=== PATIENT | female | born 1960 | race Caucasian/White ===

== ENCOUNTER 2019-05-05 21:23 | Inpatient (IN) ==
[2019-05-05] MEDS ORDERED: NS 1,000 ML IV ONE ×2 (21:51→23:59)
--- NOTE | 2019-05-05 22:01 | PROVIDER DOCUMENTATION ---
HPI-Syncope/Dizziness - General Chief Complaint: Dizziness Stated Complaint: SYNCOPE, HEAD INJURY Time Seen by Provider: 05/05/19 21:50 Source: patient Allergies/Adverse Reactions: Patient Allergies Allergy/AdvReac Type Severity Reaction Status Date / Time No Known Allergies Allergy Verified 05/05/19 22:00 Home Medications: Home Medication List Medication Instructions Recorded Confirmed Last Taken Type NK [No Home Medications] 05/05/19 05/05/19 Unknown History - History of Present Illness-Syncope/Dizzy Nature of Presenting Problem: 58 YOF PRESENTS WITH C/O GENERALIZED WEAKNESS, DIZZINESS AND "PASSING OUT X 1". SHE REPORTS SHE HAS BEEN FISHING ALL DAY IN THE HE[place], LAST MEAL WAS AT 2PM AND LAST PO FLUIDS AT 2PM. SHE REPORTS SHE BECAME DIZZY SAT DOWN ON A STUMP AND PASSED OUT CAUSING HER TO HIT HER HEAD. SHE WOKE UP LESS THAN A MINUTE LATER AND WAS ALERT AND ORIENTED X 3. SHE DENIES PAIN, CP, FEVER, CHILLS, SOB, N/V/D. SHE DOES CONFIRM RECENT DYSURIA AND FLANK PAIN FOR WHICH SHE TOOK AZO Prior Episodes: reports: single episode today Onset/Duration: reports: just prior to arrival (2014) Timing: reports: gone now Position/Activity at time of episode: reports: sitting Symptoms prior to episode: reports: lightheaded Duration of preceding symptoms? (mins): 5 (MIN) Context: reports: lost consciousness. denies: confused after event, incontinent of urine, incontinent of stool, breathing shallow Loss of Consciousness: brief (seconds) Location of injury. (If syncope resulted in an injury.): reports: head (OCCIPI SAMMIE AREA HIT GRAVEL, WHEN PASSED OUT WAS SITTING ON TREE STUMP) Current Symptoms: reports: none/feels normal Recently Seen Here or By Another Healthcare Provider: No - Dizziness Severity in ED: denies: mild Dizziness Related Current/Associated Symptoms: reports: none/feels normal Modifying Factors: improves with: changing position Patient usually:: reports: walks without assistance Review of Systems - Adult - REVIEW OF SYSTEMS - ADULT Constitutional: reports: no symptoms reported. denies: see HPI, chills, fever, fatique, night sweats, weight gain, weight loss, other Eyes: reports: no symptoms reported. denies: see HPI, discharge, dry eyes, decreased vision, blurred vision, double vision, eye pain, redness, other Ears, Nose, Mouth & Throat: reports: no symptoms reported. denies: see HPI, ear discharge, ear pain, hearing loss, tinnitus, epistaxis, sinus problem, nose pain, loose teeth, mouth/dental pain, mouth swelling, hoarseness, throat pain, throat swelling, other Cardiovascular: reports: no symptoms reported. denies: see HPI, chest pain, edema, heart murmur, irregular heart rate, orthopnea, palpitations, poor circulation, PND, syncope, other Respiratory: reports: no symptoms reported. denies: see HPI, chronic cough, cough, dyspnea on exertion, excessive sputum production, hemoptysis, pleurisy, shortness of breath, wheezing, other Gastrointestinal: reports: no symptoms reported. denies: see HPI, abdominal pain, hematemesis, constipation, diarrhea, difficulty swallowing, frequent heartburn, nausea, poor appetite, rectal bleeding, vomiting, other Genitourinary: reports: dysuria, flank pain. denies: no symptoms reported, see HPI, discharge, frequency, frequent UTI's, hematuria, hesitency, incontinence, urinary retention, urgency, other Musculoskeletal: reports: muscle weakness (GENERALIZED WEAKNESS, NO FOCAL NEURO DEFICITS). denies: no symptoms reported, see HPI, bone pain, back pain, frequent leg cramps, joint pain, joint swelling, muscle aches, neck pain, other Integumentary: reports: no symptoms reported. denies: see HPI, hives, hair loss, itching, mole changes, nail changes, rash, skin sores/ulcer, skin thickening, other Neurological: reports: dizziness/vertigo. denies: no symptoms reported, see HPI, ataxia, headache/migraines, loss of balance, numbness, paresthesia, seizure, slurred speech, syncope, tremors, other Psychiatric: reports: no symptoms reported. denies: see HPI, anxiety, anti- depressant use, alcohol/drug dependence, depression, emotional problems, insomnia, panic attacks, suicidal thoughts, other Endocrine: reports: no symptoms reported. denies: see HPI, change in skin pigment, excessive sweating, goiter, cold intolerance, heat intolerance, increased hunger, increased thirst, polyuria, other Hematologic/Lymphatic: reports: no symptoms reported. denies: see HPI, blood clots, easy bruising, low blood count, lymphedema, prolonged bleeding, swollen lymph nodes, transfusions, other Allergic/Immunologic: reports: no symptoms reported. denies: see HPI, allergic reactions, allergic rhinitis, asthma, eczema, food allergy, frequent infections, hay fever, hives, positive PPD, urticaria, other Past History - Adult - PAST MEDICAL HISTORY-ADULT Review of Records: reports: Nursing Assessment Review, Social history reviewed & non-contributory. Physical Exam-General - PHYSICAL EXAM-ADULT Initial Vital Signs Reviewed: Yes - CONSTITUTIONAL General Appearance: appears well, alert, no apparent distress - EYES Eyes: PERRL/EOMI - HEAD, EARS, NOSE, MOUTH & THROAT HENMT: normocephalic/atraumatic, moist mucous membranes, normal ENT inspection - NECK Neck: non-tender, full range of motion, supple - RESPIRATORY Respiratory: chest non-tender, lungs clear, normal breath sounds, no pleuratic chest pain - CARDIOVASCULAR Cardiovascular: normal peripheral pulses, regular rate, rhythm - GASTROINTESTINAL (ABDOMEN) Abdominal Exam: normal bowel sounds, non tender, soft - LYMPHATIC Lymphatic: no adenopathy - MUSCULOSKELETAL Back Exam: normal inspection, no CVA tenderness, no vertebral tenderness Extremity: normal range of motion, non-tender, normal gait, normal inspection - SKIN Integumentary: normal color, normal turgor, warm/dry - NEUROLOGIC Neurologic: grossly normal - PSYCHIATRIC Psych/Mental Status: normal mood/affect, oriented x 3 Progress - PLAN OF CARE/RESULTS Progress/Plan/Lab Results: Vital Signs - 8 hr 05/05/19 21:27 05/05/19 22:26 05/05/19 22:33 Temperature 98 F Pulse Rate 92 H 83 Pulse Rate [Sitting] 79 Pulse Rate [Standing] 88 Pulse Rate [Supine] 80 Respiratory Rate 18 15 Blood Pressure 124/77 187/84 Blood Pressure [Sitting] 178/99 Blood Pressure [Standing] 176/80 Blood Pressure [Supine] 182/92 O2 Sat by Pulse Oximetry 97 96 05/05/19 23:24 05/05/19 23:37 05/05/19 23:46 Temperature 97.9 F Pulse Rate 86 97 H Pulse Rate [Sitting] Pulse Rate [Standing] Pulse Rate [Supine] Respiratory Rate 22 17 Blood Pressure 189/90 165/114 189/89 Blood Pressure [Sitting] Blood Pressure [Standing] Blood Pressure [Supine] O2 Sat by Pulse Oximetry 97 96 05/06/19 00:04 Temperature Pulse Rate 87 Pulse Rate [Sitting] Pulse Rate [Standing] Pulse Rate [Supine] Respiratory Rate 20 Blood Pressure 161/88 Blood Pressure [Sitting] Blood Pressure [Standing] Blood Pressure [Supine] O2 Sat by Pulse Oximetry 95 Laboratory Results - last 24 hr 05/05/19 05/05/19 05/05/19 21:55 21:55 21:55 WBC 15.40 H RBC 5.04 Hgb 14.6 Hct 41.9 MCV 83.1 MCH 29.0 MCHC 34.8 RDW Std Deviation 13.0 Plt Count 243 MPV 11.4 H Immature Gran % (Auto) 0.3 Neut % (Auto) 80.6 H Lymph % (Auto) 8.9 L [place] % (Auto) 8.5 Eos % (Auto) 1.4 Baso % (Auto) 0.3 Immature Gran # (Auto) 0.05 H Neut # (Auto) 12.41 H Lymph # (Auto) 1.37 [place] # (Auto) 1.31 H Eos # (Auto) 0.22 Baso # (Auto) 0.04 PT INR PTT (Actin FS) Sodium 135 L Potassium 4.1 Chloride 97 L Carbon Dioxide 24 L Anion Gap 14 BUN 16 Creatinine 0.8 Estimated GFR/1.73 m2 > 60 BUN/Creatinine Ratio 20 Glucose 418 H* POC Glucose Calculated Osmolality 289 Calcium 9.2 Creatine Kinase 83 Troponin T < 0.010 Urine Source Urine Color Urine Clarity Urine pH Ur Specific [place] Urine Protein Urine Ketones Urine Blood Urine Nitrite Urine Bilirubin Urine Urobilinogen Urine Microscopic RBC Urine WBC Urine Microscopic WBC Ur Epithelial Cells Urine Bacteria Urine Glucose 05/05/19 05/05/19 05/05/19 21:55 22:18 22:36 WBC RBC Hgb Hct MCV MCH MCHC RDW Std Deviation Plt Count MPV Immature Gran % (Auto) Neut % (Auto) Lymph % (Auto) [place] % (Auto) Eos % (Auto) Baso % (Auto) Immature Gran # (Auto) Neut # (Auto) Lymph # (Auto) [place] # (Auto) Eos # (Auto) Baso # (Auto) PT 14.1 INR 1.04 PTT (Actin FS) 28.3 Sodium Potassium Chloride Carbon Dioxide Anion Gap BUN Creatinine Estimated GFR/1.73 m2 BUN/Creatinine Ratio Glucose POC Glucose 386 H Calculated Osmolality Calcium Creatine Kinase Troponin T Urine Source CLEAN CATCH Urine Color YELLOW Urine Clarity CLEAR Urine pH 5.0 Ur Specific [place] 1.015 Urine Protein 1+(30 mg/dL) A Urine Ketones TRACE Urine Blood NEGATIVE Urine Nitrite NEGATIVE Urine Bilirubin NEGATIVE Urine Urobilinogen NORMAL Urine Microscopic RBC <10 Urine WBC TRACE A Urine Microscopic WBC <10 Ur Epithelial Cells <10 Urine Bacteria 3+ Urine Glucose 3+(500 mg/dL) A Orders Category Date Time Status Admit - [facility] Routine AdmDCTranf 05/05/19 23:59 Active Activity - Up Ad Monica ORDERED Care 05/05/19 23:59 Active FSBS [Finger Stick Blood Sugar (ED)] DIRECTED Care 05/05/19 21:58 Active Neurological Check Q4H Care 05/06/19 00:00 Active Orthostatic Vital Signs NOW Care 05/05/19 22:02 Active Saline Loc DIRECTED Care 05/05/19 23:59 Active Saline Loc NOW Care 05/05/19 21:50 Active Vital Signs Order ROUTINE Care 05/05/19 23:59 Active Z-Document. for Tele Applied ORDERED Care 05/06/19 00:00 Active Diabetic Diet Diet 05/06/19 00:[address] HEAD/C-SPINE W/O CONTRAST [CT] Stat Exams 05/05/19 21:50 Completed BASIC METABOLIC PANEL [CHEM] Stat Lab 05/05/19 21:55 Completed CBC WITH ELECTRONIC DIFF [HEME] Stat Lab 05/05/19 21:55 Completed CK PROFILE [SP CHEM] Stat Lab 05/05/19 21:55 Completed PT [PROTIME WITH INR] [COAG] Stat Lab 05/05/19 21:55 Completed PTT [COAG] Stat Lab 05/05/19 21:55 Completed TROPONIN T Stat Lab 05/05/19 21:55 Completed UA NIMS W/REFLEX CULT PL [URINALYSIS] Stat Lab 05/05/19 22:36 Completed 0.9% Sodium Chloride Inj [Ns] 1,000 ml Med 05/05/19 23:59 Active IV 75 mls/hr 0.9% Sodium Chloride Inj [Ns] 1,000 ml Med 05/05/19 21:51 Discontinued IV 999 mls/hr CefTRIAXONE [Rocephin] 1 gm Med 05/05/19 23:05 Discontinued 0.9% Sodium Chloride Inj [Ns] 50 ml IV NOW Insulin Human Regular ([place] [Humulin R ([place])] Med 05/05/19 23:06 Discontinued See Protocol SUBQ NOW ONE Telemetry [OM.EQ] Routine Oth 05/05/19 23:59 Active EKG [EKG] Stat Ther 05/05/19 21:51 Draft Transfer/Admit Order [TRANSFER] Routine Transfer 05/06/19 00:01 Ordered D/W MD: WE HAVE [address] READ[address] ONE PER DR TOBIN SHOWING NO ACUTE ABNORMALITY AND ONE FROM DR YOUNGER SHOWING ARTIFACT V TINY SUBARACHNOID HEMORRHAGES. DR MENDOZA MADE CALL TO TRANSFER CENTER AND IMAGES WERE PUSHED FOR REVIEW. FAMILY IS IN AGREEMENT AND REPORT THE PATIENT IS A DIET CONTROLLED DIABETIC ADN ARE ALSO IN AGREEMENT WITH [facility] 2320: SPOKE WITH HEIDI AT [facility] WHO REPORTS DR HELMS REVIEWED FILMS AND REPORTS NO ACUTE ABNORMALITY BUT DOES RECOMMENDS OBS INPATIENT Result Diagrams: 05/05/19 21:55 05/05/19 21:55 Departure - Departure Date of Disposition Decision: 05/06/19 Time of Disposition Decision: 00:01 DIAGNOSIS: Syncope, Hyperglycemia, UTI (urinary tract infection) Disposition: HOME 01 Certified Medical Emergency: Emergent Condition: Stable Referrals and Follow-Ups: None,PCP [Primary Care Provider] - - Critical Care Note This patient required my direct & personal management of CC.: No Attestation - Physician/ BUNNY Attestation Patient care was provided by Advanced Practice Provider:: Yes Advanced Practice Provider:: Carolyn Humphries Advanced Practice Provider documentation review:: The Mid-level provider documentation, treatment plan and medical decision making was reviewed by the physician who agrees with all treatment and medical decision making by the P. The physician spent face to face time with patient:: No Advanced Practice Provider documentation review:: Supervising physician onsite and consulted in the evaluation and care of this patient. The physician did not have a face to face encounter with the patient.
--- NOTE | 2019-05-05 22:20 | Diag Imaging Result Doc PS360 ---
CT HEAD/C-SPINE W/O CONTRAST - 05/05/2019 INDICATION: fall COMPARISON: None FINDINGS: Head CT: There are faint nonspecific subarachnoid hyperdensities at the anterior cerebral hemispheres bilaterally. The appearance is indeterminate, this could represent subtle hemorrhage or just artifact. The ventricles and sulci are normal in size and contour. No mass effect or midline shift. The skull is intact. The sinuses are clear. Cervical spine: Alignment is anatomic. Vertebral body heights are preserved. There is moderately advanced multilevel disc degeneration. This is worst at C5-6-6 and C6-C7. There are also prominent disc bulges at C2-3 and C3-4. No fracture or subluxation. IMPRESSION: 1. Probably artifact, but cannot exclude tiny subarachnoid hemorrhages at the anterior cerebral hemispheres. 2. Cervical spondylosis. No acute injury. This exam was performed using automated exposure control, adjustment of mA or kV according to patient size, and/or use of iterative reconstruction technique Electronically signed by Chaitanya Méndez 05/05/2019 10:18 PM
[2019-05-05 22:21] LABS: BASO# 0.04 X1000 (0.0-0.2); BASO% 0.3 % (0.0-0.8); EOS# 0.22 X1000 (0.0-0.7); EOS% 1.4 % (0.0-10.0); HEMATOCRIT 41.9 % (37.0-47.0); HEMOGLOBIN 14.6 g/dL (12.0-16.0); IMM GRAN# 0.05 X1000 (0.0-0.04); IMM GRAN% 0.3 % (0.0-0.5); LYMPH# 1.37 X1000 (1.2-3.4); LYMPH% 8.9 % (20.5-51.1); MCHC 34.8 g/dL (33-37); MCV 83.1 FL (81-99); MONO# 1.31 X1000 (0.11-0.59); MONO% 8.5 % (1.7-9.3); MPV 11.4 FL (7.4-10.4); NEUT# 12.41 X1000 (1.4-6.5); NEUT% 80.6 % (42.2-75.2); PLT 243 X1000 (130-400); RBC 5.04 XMIL (4.2-5.4)
[2019-05-05 22:30] LABS: INR 1.04; PROTIME 14.1 Seconds (11.0-16.0); PTT 28.3 Seconds (22.3-41.8)
[2019-05-05 22:42] LABS: ESTIMATED GFR > 60
[2019-05-05 22:45] LABS: AGAP 14; CHLORIDE 97 mmol/L (98-107); POTASSIUM 4.1 mmol/L (3.5-5.1); SODIUM 135 mmol/L (136-145); TCO2 24 mmol/L (25-35)
[2019-05-05 22:46] LABS: BUN 16 mg/dL (8-22); CALCIUM 9.2 mg/dL (8.8-10.2); CK PROFILE 83 U/L (24-173); COSMO 289; CREATININE 0.8 mg/dL (0.5-0.9)
[2019-05-05 22:51] LABS: BILIRUBIN URINE NEGATIVE (NEGATIVE); BLOOD URINE NEGATIVE (NEGATIVE); CLARITY CLEAR (CLEAR); COLOR YELLOW; KETONE URINE TRACE mg/dL (NEGATIVE); LEUKOCYTES URINE TRACE (NEGATIVE); NITRITE URINE NEGATIVE (NEGATIVE); PROTEIN URINE 1+(30 mg/dL) mg/dL (NEGATIVE); SP GRAVITY URINE 1.015; URINE BACTERIA 3+ /HFP; URINE EPITHELIAL CELLS <10 /HPF (<10); URINE RBC <10 /HPF (<10); URINE SOURCE CLEAN CATCH; URINE WBC <10 /HPF (<10); UROBILINOGEN URINE NORMAL
[2019-05-05 22:52] LABS: GLUCOSE 418 mg/dL (70-104)
[2019-05-05] MEDS ORDERED: ROCEPHIN 1 GM in NS 50 ML IV ONE (23:05)
[2019-05-05] MEDS ORDERED: HUMULIN R (PARKWAY) SUBQ ONE (23:06)
--- NOTE | 2019-05-05 23:15 | ED EKG INTERP ---
This chart was entered by Adrienne Cool Scribe, acting as scribe for Phil Low MD. EKG Interpretation - EKG Time of EKG reading by physician:: 22:25 EKG Read and Signed by:: Phil Low EKG Interpretation (*Must complete 3 of following elements*): Abnormal (possible left atrial enlargement) Rate: 79 Rhythm: nsr [place]: normal QRS: normal FL Interval: normal ST Wave: normal Attestation - Physician/ BUNNY Attestation Patient care was provided by Advanced Practice Provider:: Yes Advanced Practice Provider documentation review:: The Mid-level provider documentation, treatment plan and medical decision making was reviewed by the physician who agrees with all treatment and medical decision making by the MLP. The physician spent face to face time with patient:: Yes Advanced Practice Provider documentation review:: Supervising physician onsite and consulted in the evaluation and care of this patient. The physician did have a face to face encounter with the patient. This chart was documented by the indicated scribe, (Adrienne Cool Scribe) and accurately reflects the services I performed and decisions made by me, Phil Low MD, as attested by the provider's signature.
--- NOTE | 2019-05-06 00:21 | EKG Report ---
Test Performed on : 05/05/2019 10:24:30 PM Test Reason : CP Blood Pressure : / mmHG Vent. Rate : 079 BPM Atrial Rate : 079 BPM P-R Int : 134 ms QRS Dur : 084 ms QT Int : 406 ms P-R-T Axes : 043 035 030 degrees QTc Int : 465 ms Normal sinus rhythm. Possible Left atrial enlargement Borderline ECG No previous ECGs available Unconfirmed Result
[2019-05-06] MEDS ORDERED: HUMULIN R (PARKWAY) SUBQ ONE (01:46)
[2019-05-06] MEDS ORDERED: ZOFRAN IV PRN (09:04)
[2019-05-06] MEDS ORDERED: TYLENOL PO PRN (09:04)
--- NOTE | 2019-05-06 09:29 | EKG Report ---
Test Performed on : 05/06/2019 08:08:24 AM Test Reason : pause on telemetry Blood Pressure : / mmHG Vent. Rate : 080 BPM Atrial Rate : 080 BPM P-R Int : 136 ms QRS Dur : 084 ms QT Int : 410 ms P-R-T Axes : 045 035 039 degrees QTc Int : 472 ms Normal sinus rhythm. Normal ECG When compared with ECG of 05-MAY-2019 22:24, (Unconfirmed) No significant change was found Unconfirmed Result
[2019-05-06] MEDS ORDERED: GLUCOTROL PO SCH (10:15)
[2019-05-06] MEDS ORDERED: ROCEPHIN 1 GM in NS 50 ML IV SCH ×2 (10:30→22:00)
[2019-05-06 10:37] LABS: BASO# 0.01 X1000 (0.0-0.2); BASO% 0.1 % (0.0-0.8); HEMATOCRIT 37.8 % (37.0-47.0); HEMOGLOBIN 13.2 g/dL (12.0-16.0); IMM GRAN# 0.02 X1000 (0.0-0.04); IMM GRAN% 0.2 % (0.0-0.5); LYMPH# 0.73 X1000 (1.2-3.4); LYMPH% 7.3 % (20.5-51.1); MCH 29.1 PG (27-31); MCHC 34.9 g/dL (33-37); MCV 83.4 FL (81-99); MONO# 0.66 X1000 (0.11-0.59); MONO% 6.6 % (1.7-9.3); MPV 11.2 FL (7.4-10.4); NEUT# 8.51 X1000 (1.4-6.5); NEUT% 84.8 % (42.2-75.2); PLT 232 X1000 (130-400); RBC 4.53 XMIL (4.2-5.4); WBC 10.03 X1000 (4.8-10.8)
[2019-05-06 10:40] LABS: AGAP 9; BUN 14 mg/dL (8-22); CALCIUM 8.2 mg/dL (8.8-10.2); CHLORIDE 101 mmol/L (98-107); COSMO 286; CREATININE 0.7 mg/dL (0.5-0.9); ESTIMATED GFR > 60; GLUCOSE 336 mg/dL (70-104); MAGNESIUM 1.6 mg/dL (1.5-2.7); POTASSIUM 4.5 mmol/L (3.5-5.1); SODIUM 136 mmol/L (136-145); TCO2 26 mmol/L (25-35)
--- NOTE | 2019-05-06 10:59 | Diag Imaging Result Doc PS360 ---
EXAM: CT ANGIOGRAM HEAD HISTORY: r/o sah TECHNIQUE: CT angiogram head with contrast. MIP images obtained. COMPARISON: CT head from 05/05/2019 FINDINGS: Mild atherosclerosis distally in each internal carotid artery just proximal to the anterior and middle cerebral arteries. Normal flow in the anterior and middle cerebral arteries. Dominant A1 segment on the right. Normal flow within each distal vertebral artery. Normal basilar artery. This supplies the right posterior cerebral artery. A posterior communicating artery on the left supplies the left posterior communicating artery. This is a normal variant. No aneurysm. IMPRESSION: No abnormality identified. This exam was performed using automated exposure control, adjustment of mA or kV according to patient size, and/or use of iterative reconstruction technique. Electronically signed by Mike Adame 05/06/2019 10:57 AM
--- NOTE | 2019-05-06 15:10 | HISTORY AND PHYSICAL ---
ADDENDUM TO HISTORY AND PHYSICAL Add under Assessment and Plan Urinary tract infections with symptoms. She is currently on Rocephin for treatment. Dictated by DESMOND Her for Buster Kat MD cc: DESMOND Her MD
--- NOTE | 2019-05-06 15:52 | HISTORY AND PHYSICAL ---
ADDENDUM Patient came in after a syncopal episode. Apparently she was out fishing and then she just passed out. She did have some preceding dizziness. She had been fishing all day in the heat not drinking very much. She did fall over and hit her head. She woke up about a minute later possibly less than that. She does have some dysuria and another thing she was hyperglycemic when she came in, she is a diabetic but we are not sure what her medications are. I think she is diet controlled actually as far as the diabetes is concerned. She does have a family history of heart attack or CAD her mother had issues when she was in her 50s. She in her 60s due to CAD. Patient herself does not have any other issues there. Her exam is really nonfocal. Her EKG was unremarkable. Her head CT showed some trace subarachnoid hemorrhage possibly but felt to be probably artifact. This was reviewed by neurosurgery in [place] and they felt that this was not an active issue. She has a nonfocal neurologic exam. No headache or anything of the sort. In any case patient was evaluated and placed in observation. This morning she had up to 4 second pause and she was extremely symptomatic during that time, it was recorded, again EKG did not show anything significant and she is asymptomatic at this time. I am concerned she has a primary arrhythmia such as a significant conduction abnormality and will likely need a pacemaker. We will get an echocardiogram and cardiology consult, repeat her enzymes, her EKG is nonspecific. There is a questionable Q waves in her anterior inferior leads laterally so we will continue to monitor. Will get a CT angiogram MRI just to make sure there is nothing going on neurologically since she had questionable artifacts but I think that is unlikely. We will work on diabetic control. I do think she probably needs additional medications cause her blood sugars are not under control. I think metformin will be in order but we are going to get contrasted CT so will have to hold on that but I will start some glipizide and see how she does. Continue to monitor closely. We will get cardiology evaluation obviously and follow closely, get an A1c. Further orders per the nurse practitioner evaluation, will continue to monitor. cc: Buster Kat MD [facility]
--- NOTE | 2019-05-06 15:55 | HISTORY AND PHYSICAL ---
PRIMARY CARE PROVIDER: DESMOND Parra and Dr. Chaitanya Mayer. CHIEF COMPLAINT: Passed out. HISTORY OF PRESENT ILLNESS: Ms. Shamika Sheppard is a 58-year-old female with a medical history of diabetes mellitus type 2 that is diet controlled and hypertension, not on any medications for that either. She presents with a syncopal spell that happened yesterday on the . Apparently, she had been fishing and had not eaten anything until about 02:00. Around 7:45, she came back in due to feeling like she was too hot and was dizzy. She stopped several times to get to the car, sat on a stump and started having sweats, and then passed out hitting the back of her head on gravel. She was out for a minute or two and came back to, and was then brought to the emergency department. She had a head CT which showed cervical spondylosis but also showed probable artifact but could not exclude tiny subarachnoid hemorrhages at the anterior cerebral hemispheres. The imaging was reviewed by physicians at [facility] who ruled out for subarachnoid hemorrhages. Her vital signs were stable, and she was admitted to the medical floor. Once again this morning while she was trying to eat breakfast, she became nauseated, became near syncopal, clammy, hot, and on the telemetry was caught having a four second pause. She did not pass out, and so Cardiology was consulted. Other complaints she has had was for the past two days she has had bilateral flank pain and painful urination. She went ahead and took one Bactrim and over the counter Pyridium and felt like the symptoms were gone, but she presents with a white blood cell count of 15,000 and bacteria in the urine. She also has elevated blood glucose levels which will also be treated. PAST MEDICAL HISTORY: 1. Diabetes mellitus type 2 diet controlled due to a 25 pound weight loss. She did not require medication according to her. 2. Hypertension. She also does not take medication for that for at least 3 to 4 years. PAST SURGICAL HISTORY: 1. Two sections. 2. Partial hysterectomy. SOCIAL HISTORY: Denies tobacco, alcohol or illicit drug use. FAMILY HISTORY: Mother had lymphoma and laryngeal cancer. She also had rheumatoid arthritis. Her mother had a heart attack at the age of 54 and had several heart attacks, but that was her first one at that age. Father had emphysema and kidney failure due to medications to treat pneumonia. ALLERGIES: No known drug allergies. HOME MEDICATIONS: No home medications. REVIEW OF SYSTEMS: A 14 point Review of Systems were all complete and all were negative except for those mentioned above in HPI. PHYSICAL EXAMINATION: VITAL SIGNS: Temperature 98.3, heart rate 85, respiratory rate 18, blood pressure 153/68, 02 saturation 97% on room air. GENERAL: Ms. Shamika Sheppard is a 58-year-old female. She is in no acute distress. She is able to answer questions appropriately. HEENT: Normocephalic and atraumatic. Pupils are equal, round and reactive to light. Extraocular movements are intact. Mucous membranes are dry. NECK: Trachea midline. CARDIOVASCULAR: S1 and S2. Regular rate and rhythm with no murmur, gallop or rub. No lower extremity edema. Negative for JVD or carotid bruits. PULMONARY: Clear to auscultation bilateral breath sounds. No accessory muscle use. No work of breathing noted. GI: Abdomen is soft. Nontender. Nondistended. Positive bowel sounds x4. EXTREMITIES: Moves all extremities equally with full range of motion. NEUROLOGIC: Alert and oriented times 3. Follows commands. Sensory intact. SKIN: Warm, dry and intact. LABORATORY DATA: On admission, white blood cells 15,000, hemoglobin 14, hematocrit 41, and platelet count 243,000. INR is 1.04, PTT 28.3. Sodium 135, potassium 4.1, BUN 16, creatinine 0.8. Glucose 418. Calcium 9.2. CK 83, troponin less than 0.01. Urinalysis 1+ protein with trace white blood cells, 3+ bacteria, 3+ glucose. Today's labs: White blood cells 10,000, hemoglobin 13, hematocrit 37, and platelet count 232,000. Sodium 136, potassium 4.5, BUN 14, creatinine 0.7, glucose 336. Calcium 8.2, magnesium 1.6, CK 79, troponin less than 0.01. IMAGING: A head cervical spine CT probable artifact but could not exclude tiny subarachnoid hemorrhages at the anterior cerebral hemispheres when reviewed by [facility], it was just artifact. It also showed cervical spondylosis. EKG normal sinus rhythm with rate of 79, QTC 465. Another EKG normal sinus rhythm, rate of 80, QTC 472. Head CTA no abnormality identified. It did show some mild atherosclerosis distally and age internal carotid artery just proximal to the anterior middle cerebral artery, normal flow. ASSESSMENT AND PLAN: 1. Syncope likely secondary to cardiac pause versus dehydration. She was caught having a four second pause this morning and was symptomatic with it. Cardiology has been consulted. Electrolytes are normal. We will keep her on telemetry. 2. Diabetes mellitus type 2. We will check a hemoglobin A1C. She appears to be hyperglycemic despite insulin treatment. She has not been taking anything at home for treatment as well so we will have to keep her on insulin. We may have to increase her sliding scale and start her on some long acting insulin. Currently, she is running in the 300's. 3. Hypertension. Not on any medications for that either and her blood pressure mostly is running anywhere from 126 to as high as 189 systolically. The diastolic is all over the place as well. If she becomes too hypertensive, we can probably add some hydralazine p.r.n., but we will wait and see what cardiology has to say. 4. DVT prophylaxis. SCD's. Dictated by DESMOND Her for Buster Kat MD cc: DESMOND Her MD
[2019-05-07 06:08] LABS: INR 1.09; PROTIME 14.7 Seconds (11.0-16.0)
[2019-05-07 06:09] LABS: PTT 31.6 Seconds (22.3-41.8)
[2019-05-07 06:11] LABS: AGAP 10; ALBUMIN 3.5 g/dL (3.5-5.0); ALKALINE PHOSPHATASE 82 U/L (32-104); BUN 14 mg/dL (8-22); CALCIUM 8.2 mg/dL (8.8-10.2); CHLORIDE 104 mmol/L (98-107); COSMO 280; CREATININE 0.8 mg/dL (0.5-0.9); ESTIMATED GFR > 60; GLUCOSE 175 mg/dL (70-104); GOT 28 U/L (10-30); GPT 32 U/L (10-36); MAGNESIUM 1.7 mg/dL (1.5-2.7); POTASSIUM 3.8 mmol/L (3.5-5.1); SODIUM 138 mmol/L (136-145); TCO2 24 mmol/L (25-35); TOTAL PROTEIN 6.5 g/dL (6.3-8.3)
[2019-05-07 06:22] LABS: BASO# 0.02 X1000 (0.0-0.2); BASO% 0.3 % (0.0-0.8); EOS# 0.24 X1000 (0.0-0.7); EOS% 3.3 % (0.0-10.0); HEMATOCRIT 38.2 % (37.0-47.0); IMM GRAN# 0.01 X1000 (0.0-0.04); IMM GRAN% 0.1 % (0.0-0.5); LYMPH# 2.04 X1000 (1.2-3.4); LYMPH% 27.6 % (20.5-51.1); MCV 85.1 FL (81-99); MONO# 1.05 X1000 (0.11-0.59); MONO% 14.2 % (1.7-9.3); MPV 11.5 FL (7.4-10.4); NEUT# 4.02 X1000 (1.4-6.5); NEUT% 54.5 % (42.2-75.2); PLT 240 X1000 (130-400); RBC 4.49 XMIL (4.2-5.4); RDW 13.3 % (11.5-14.5); WBC 7.38 X1000 (4.8-10.8)
[2019-05-07 07:45] VITALS: BP 124/66
--- NOTE | 2019-05-07 08:08 | EKG Report ---
Test Performed on : 05/07/2019 07:41:30 AM Test Reason : PAUSE Blood Pressure : / mmHG Vent. Rate : 072 BPM Atrial Rate : 072 BPM P-R Int : 136 ms QRS Dur : 084 ms QT Int : 416 ms P-R-T Axes : 079 080 071 degrees QTc Int : 455 ms Normal sinus rhythm. Normal ECG When compared with ECG of 06-MAY-2019 08:08, (Unconfirmed) No significant change was found Unconfirmed Result
--- NOTE | 2019-05-07 08:45 | CARDIOLOGY CONSULTATION ---
DATE: 05/06/2019 REQUESTED BY: Hospitalist Service. REASON: Syncope, abnormal telemetry suggesting asystole, sick sinus syndrome. HISTORY: Mrs. Sheppard is a pleasant 58-year-old female, who was in her usual state of health until yesterday. She went out fishing with her family and she was fishing and she felt slightly lightheaded, a little nauseous, dizzy, and she walked towards the car and all of the sudden she just collapsed. Her daughter, who is a nurse, was with her. She had attended her at that time and she did not show any signs of seizures. Gradually, she came back to her senses and was brought to the emergency room at [place] at about 9 p.m. The patient received an electrocardiogram that showed no abnormalities. They did a number of head CT studies yesterday and today. No significant abnormality is noted. Today around breakfast time 8 a.m., she was eating the breakfast and then felt almost like passing out. Telemetry at that time revealed a 4 second pause. It was 7:47 a.m. The patient says that over the course of the past few days she has noted some lightheadedness but nothing as bad as what happened yesterday. She denies having chest pain or dyspnea. Past history positive for a remote history of hypertension as well as diabetes mellitus type 2. She lost weight about 20 pounds and both conditions seem to improve. She has not seen a primary doctor in a while. SURGICAL HISTORY: She has had 2 C-sections in the past and 1 ovarian cyst removed. SOCIAL HISTORY: She is a . She has 4 children. She had 2 twin pregnancies. FAMILY HISTORY: Mother of heart attack and also brother of heart attack at the age of 58. HOME MEDICATIONS: She is not taking any. ALLERGIES: Negative. REVIEW OF SYSTEMS: Other than what I have reported is basically negative. She has no issues. She lives by herself and able to carry on with her usual chores without limitations. PHYSICAL EXAMINATION: Vital signs: Today, blood pressure is 153/68, temperature 98.3, pulse 85, respirations 13. General: She is awake, alert, oriented, no distress. HEENT: Unremarkable. Chest: Clear to auscultation and percussion. Heart: Sounds are regular and rhythmic with a systolic aortic murmur 2/6 in intensity radiated to the neck. Abdomen: Nontender, soft. No masses or hepatomegaly. Extremities: Showed good pulses. No peripheral edema. Neurologic exam: Follows commands, moves all 4 extremities. BLOOD WORK: White cell count 10,000, hemoglobin 17.2, hematocrit 37.8. Sodium 136, potassium 4.5, BUN 14, creatinine 0.7. Troponins are negative. ProBNP has not been checked. IMPRESSION: 1. Patient presented with syncopal episode. 2. Electrocardiogram evidence of asystole 4 seconds. This is consistent with sick sinus syndrome. 3. Systolic murmur very likely to represent aortic stenosis. 4. History of diabetes mellitus type 2. 5. History of hypertension. RECOMMENDATIONS: At this time, the patient appears to be a good candidate for a dual-chamber pacemaker. I will contact [facility] and will discuss the case with them. We will try to obtain an echocardiogram to confirm aortic stenosis. She may do ischemic workup after insertion of pacemaker. At this point, then she really has no symptoms to suspect coronary heart disease. cc: Pete Lyons MD
[2019-05-07] MEDS ORDERED: COZAAR PO SCH (09:00)
[2019-05-07] MEDS ORDERED: PRILOSEC PO SCH (09:00)
--- NOTE | 2019-05-08 08:11 | ECHO REPORT ---
ORDER DATE: 05/06/2019 INTERPRETING PHYSICIAN: Dr. Oskar Walker. ECHOCARDIOGRAPHIC MEASUREMENTS: 1. Interventricular septum 1.4 2. Left ventricular posterior wall 1.1. 3. Diastolic diameter 3.2. 4. Left atrium 3. 5. Aorta 2.8. SUMMARY OF THE 2-DIMENSIONAL IMAGIN. Mitral valve was normal. 2. Aortic valve leaflets were trileaflet. 3. Pulmonic valve was normal. 4. Normal left ventricular cavity size. Concentric left ventricular hypertrophy. Estimated ejection fraction of 60% to 65%. 5. Technically suboptimal study. 6. There is mild tricuspid regurgitation. Peak velocity across the tricuspid valve was 3.3 m/sec. 7. Pulmonary artery systolic pressure of 53 mmHg. 8. There is mild mitral regurgitation, mild tricuspid regurgitation. 9. There is diastolic dysfunction. 10. Peak velocity across the aortic valve less than 2 m/sec. There is mild aortic regurgitation. 11. There is hyperdynamic circulation. 12. There is no pericardial effusion or obvious intracardiac mass or thrombus seen. cc: MD Buster Gastelum MD
== END 2019-05-07 09:10 | disposition short-term general hospital (02) | DRG 310 ==
LOC: P.ED 21:23 → P.MEDSURG 21:23 → OBSVTOIN 05-06 01:32
PROVIDERS: ATTEND Internal Medicine
CPT/HCPCS: 70450; 70496; 72125; 80048; 80053; 81001; 82550; 82948; 83036; 83735; 84484; 85025; 85610; 85730; 93005; 93306; 94761; 94799; A9270; J0696; J1815; J7030; Q9967; XXXXX